=== PATIENT | male | born 1950 | race Caucasian/White ===

== ENCOUNTER 2018-09-03 08:17 | Outpatient (REF) | payer OTHER, SELFPAY ==
[2018-09-03 23:30] LABS: ALT 67 U/L (12-78); AST 30 U/L (15-37); Albumin 4.2 g/dL (3.4-5.0); Alkaline Phosphatase 102 U/L (46-116); Anion Gap 12.9 mmol/L (3-11); BUN 14 mg/dL (7-18); Bilirubin, Total 0.3 mg/dL (0.2-1.0); CO2 27.1 mmol/L (21.0-32.0); CREATININE 0.83 mg/dL (0.70-1.30); Calcium 9.4 mg/dL (8.5-10.1); Calculated LDL 122 mg/dL; Chloride 103 mmol/L (98-107); Cholesterol 197 mg/dL (50-200); Glucose 99 mg/dL (70-100); HDL Cholesterol 46 mg/dL (40-60); Potassium 4.3 mmol/L (3.5-5.1); Sodium 143 mmol/L (136-145); Total Protein 7.5 g/dL (6.4-8.2); Triglyceride 149 mg/dL (30-150)
== END 2018-09-03 08:37 ==
LOC: NCHCN 08:17
PROVIDERS: Visit Provider Nurse Practitioner Family
DX: I10 Essential (primary) hypertension (principal); R94.5 Abnormal results of liver function studies; Z13.6 Encounter for screening for cardiovascular disorders
CPT/HCPCS: 80053; 80061; 83721

== ENCOUNTER → 2023-04-10 14:40 | Outpatient (BNVA) | payer MEDICARE, SELFPAY | PROVIDERS: PCP Student in an Organized Health Care Education/Training Program; Referring Provider Student in an Organized Health Care Education/Training Program; Visit Provider Student in an Organized Health Care Education/Training Program | DX: M17.11 Unilateral primary osteoarthritis, right knee (principal) | CPT/HCPCS: 99203 ==

== ENCOUNTER 2023-05-12 02:42 | Outpatient (CLI) | payer MEDICARE, SELFPAY ==
[2023-05-12 12:20] LABS: HCT 45.1 % (40.0-50.0); MCH 29.2 pg (27.0-33.0); MCHC 33.3 % (32.0-36.0); MCV 88 fL (80-95); MPV 9.9 fL (8.0-11.0); Platelet Count 203 10^3/uL (130-400); RBC 5.14 10^6/uL (4.36-5.78); RDW 13.2 % (11.8-14.1); RDW-SD 42.5 fL; WBC 8.18 10^3/uL (4.4-10.8)
[2023-05-12 12:38] LABS: Anion Gap 9.7 mmol/L (3-11); BUN 12 mg/dL (7-18); CO2 28.3 mmol/L (21.0-32.0); Calcium 9.7 mg/dL (8.5-10.1); Chloride 104 mmol/L (98-107); Estimated GFR 79.47 (mL/min/1.73m2); Glucose 95 mg/dL (74-106); Potassium 4.6 mmol/L (3.5-5.1); Sodium 142 mmol/L (136-145)
== END 2023-05-12 02:43 | disposition home or self-care (01) ==
LOC: LBO 02:42
PROVIDERS: PCP Student in an Organized Health Care Education/Training Program; Visit Provider Student in an Organized Health Care Education/Training Program
DX: M17.11 Unilateral primary osteoarthritis, right knee (principal); Z01.818 Encounter for other preprocedural examination
CPT/HCPCS: 36415; 80048; 85027

== ENCOUNTER 2023-05-12 11:28 | Outpatient (CLI) | payer MEDICARE, SELFPAY ==
--- NOTE | 2023-05-12 11:20 | DI.RAD_ITS ---
Exam(s) XR KNEE RT 1V XR STANDING ALIGNMENT EXAM: XR STANDING ALIGNMENT CLINICAL HISTORY: PRE OP R TKA. TECHNIQUE: 2D digital imaging was performed. Standing AP views were performed from the pelvis throu gh the ankles. Lateral view of the right knee. COMPARISON: DOC,DX XR KNEE 4V RT from 07/06/2022 CR XR KNEE RT 1V from 05/12/2023 FINDINGS: BONES: No acute fracture is present. No bony destructive lesion is seen. Leg length discrepancy: Approximately 5 millimeters, left greater than right. Severe degenerative ch anges well as scoliosis in the lumbar spine. JOINTS: Knees: Degenerative changes of both knees, right greater than left. Prominent periarticular spurring from the medial femoral tibial joint and patellofemoral joint. Ankles: Joint spaces are maintained. Multiple rounded densities are noted on the right which could r epresent multiple loose bodies. Hips: Severe narrowing of the left hip joint space and periarticular spurring. The right hip joint s pace is maintained. SOFT TISSUE: Vascular calcifications. IMPRESSION: Severe degenerative changes of the medial femoral tibial joint of the right knee. Severe degenera tive changes are also noted in the left hip.. Mild leg length discrepancy. DATA REPOSITORY: RADIATION DOSE DELIVERED:
== END 2023-05-12 11:29 | disposition home or self-care (01) ==
LOC: DIORS 11:28
PROVIDERS: PCP Student in an Organized Health Care Education/Training Program; Referring Provider Student in an Organized Health Care Education/Training Program; Visit Provider Physician Assistant
DX: M17.11 Unilateral primary osteoarthritis, right knee (principal); Z01.818 Encounter for other preprocedural examination
CPT/HCPCS: 73560; 77073

== ENCOUNTER 2023-05-23 07:08 | Day surgery (SDC) | payer MEDICARE, SELFPAY ==
[2023-05-23] VITALS (8 sets, daily range): BP systolic 103–148; BP diastolic 50–72; PULSE 49–61; RESP 14–18; TEMP 36.5–36.7; O2SAT 92–99; BMI 34.5
--- NOTE | 2023-05-23 06:29 | W.ANESPRE ---
General Info Date of Service Date Performed: 05/23/23 Height: 5 ft 9 in Weight: 106.141 kg Body Mass Index (BMI): 34.5 Surgical Procedure: Operation Date: 05/23/23 09:25 Proposed Procedure Side Surgeon p Knee Total Arthroplasty Right Shlomo Rosas MD Meds Allergies and Home Medications Allergies Allergy/AdvReac Type Severity Reaction Status Date / Time No Known Allergies Allergy Verified 05/23/23 07:24 Home Medication Medication Instructions Recorded atorvastatin 20 mg tablet 20 mg PO DAILY 04/10/23 lisinopril 20 1 tab PO DAILY 04/10/23 mg-hydrochlorothiazide 25 mg tablet oxycodone 60 mg tablet,crush 60 mg PO BID 04/10/23 resistant,extended release 12 hr pramipexole 0.125 mg tablet 0.125 mg PO QHS 04/10/23 zolpidem 10 mg tablet 10 mg PO HS 04/10/23 acetaminophen 500 mg tablet 1,000 mg (2 x 500 mg) PO TID #90 05/23/23 tabs aspirin 81 mg tablet,delayed 81 mg PO BID #60 tabs 05/23/23 release celecoxib 200 mg capsule 200 mg PO BID #60 caps 05/23/23 dexamethasone 4 mg tablet 4 mg PO DAILY #2 tabs 05/23/23 gabapentin 300 mg capsule 300 mg PO QHS #14 caps 05/23/23 oxycodone 10 mg tablet 10 mg PO Q4H PRN #20 tabs 05/23/23 pantoprazole 40 mg tablet,delayed 40 mg PO DAILY #30 tabs 05/23/23 release Current Visit Medications: Current Medications Generic Name Dose Route Start Last Admin Trade Name Ross PRN Reason Stop Dose Admin Acetaminophen 1,000 mg 05/23/23 06:00 Acetaminophen 500 Mg Tab PO 05/23/23 23:59 PREOP SHERLY Celecoxib 200 mg 05/23/23 06:00 Celecoxib 200 Mg Cap PO 05/23/23 23:59 PREOP SHERLY Gabapentin 600 mg 05/23/23 06:00 Gabapentin 300 Mg Cap PO 05/23/23 23:59 PREOP SHERLY Ringer's Solution 1,000 mls @ 80 mls/hr 05/23/23 06:00 IV 05/23/23 23:59 INFUSION SHERLY Cefazolin Sodium/Dextrose 2 gm in 50 mls @ 100 mls/hr 05/23/23 06:00 Ancef Duplex IVPB 05/23/23 23:59 PREOP SHERLY Tranexamic Acid/Sodium Chloride 100 mls @ 600 mls/hr 05/23/23 06:00 IVPB 05/23/23 23:59 PREOP SHERLY IV Miscellaneous Supplies 1 each 05/23/23 06:00 Iv Access IV 05/23/23 23:59 DIRECTED SHERLY Sodium Chloride 0 ml 05/23/23 06:00 Normal Saline Flush 10 Ml Syr IV 05/23/23 23:59 PRN PRN Sodium Chloride 0 ml 05/23/23 06:00 Normal Saline 10 Ml Vial IJ 05/23/23 23:59 DIRECTED PRN Sterile Water 0 ml 05/23/23 06:00 Water,Injection,Sterile 10 Ml Vial IJ 05/23/23 23:59 DIRECTED PRN PFSH Active Problems Active Problems: Problem Status Onset Code Arthritis of right knee M17.11 Prediabetes R73.03 Low back pain M54.50 Chronic pain syndrome G89.4 PTSD (post-traumatic stress disorder) F43.10 Erectile dysfunction N52.9 Obesity E66.9 Hyperlipidemia E78.5 Medical History Medical History (Updated 05/18/23 @ 10:35 by Mary Arredondo RN) Personal history of cardiovascular disease Tremor Elbow joint pain Shoulder joint pain Essential hypertension Psychophysiological insomnia Nicotine dependence Polyneuropathy Restless legs History of alcoholism Tobacco Smoking/Tobacco Use Status: Current every day Tobacco Type: cigarettes Alcohol Alcohol Intake: former Substance Use Substance use: Current Sobriety Vital Signs and Lab Results Lab Results Blood Type / Crossmatch: No Data to Display Complete Blood Count: White Blood Count 8.18 10^3/uL (4.4-10.8) 05/12/23 12:10 Red Blood Count 5.14 10^6/uL (4.36-5.78) 05/12/23 12:10 Hemoglobin 15.0 g/dL (13.5-17.5) 05/12/23 12:10 Hematocrit 45.1 % (40.0-50.0) 05/12/23 12:10 Platelet Count 203 10^3/uL (130-400) 05/12/23 12:10 Complete Metabolic Panel: Sodium 142 mmol/L (136-145) 05/12/23 12:10 Potassium 4.6 mmol/L (3.5-5.1) 05/12/23 12:10 Chloride 104 mmol/L (98-107) 05/12/23 12:10 Carbon Dioxide 28.3 mmol/L (21.0-32.0) 05/12/23 12:10 BUN 12 mg/dL (7-18) 05/12/23 12:10 Creatinine 1.0 mg/dL (0.70-1.30) 05/12/23 12:10 Est GFR (CKD-EPI 2020) 79.47 (mL/min/1.73m2) 05/12/23 12:10 Calcium 9.7 mg/dL (8.5-10.1) 05/12/23 12:10 Glucose 95 mg/dL (74-106) 05/12/23 12:10 Liver Function Panel: No Data to Display Coagulation Panel: No Data to Display Cardiac Panel: No Data to Display Arterial Blood Gas: No Data to Display Venous Blood Gas: No Data to Display Pancreas Panel: No Data to Display Thyroid Panel: No Data to Display Infectious Disease: No Data to Display Blood Cultures: No Data to Display Toxicology Panel: No Data to Display Anesthesia Assessment and Plan Anesthesia History Personal History: Unknown Anesthesia History Family History: No Family History of Anesthesia Complications Exercise Tolerance Exercise Tolerance: Metabolic Equivalents>4 Cardiac & Pulmonary Exam Cardiac Exam: Normal S1/S2 Heart Sounds Pulmonary Exam: Clear Bilateral Breath Sounds Implantable Cardiac Device Does patient have a Pacemaker or an ICD?: No Airway Exam Known Difficult Airway: No Mallampati Class: 4 Mouth Opening: Normal (> 3cm) Thyromental Distance: Greater than 3 cm Neck Range of Motion: Limited ROM Neck Circumference: Thick Teeth Condition: Normal Dentition and Removable Dentures/Plates Upper ASA Classification ASA Score: ASA 2 Emergency Case?: No NPO Status NPO Status: NPO Clears >2 hours, Solids >8 hours Anesthesia Plan Resuscitation Status: Full Code Anesthesia Technique: Spinal Anesthesia Airway Planned: Natural Airway Pain Management: Surgeon and patient request nerve block Monitors Used: Standard Monitors Preoperative Comments:: 72 yo male for TKA. Sig PMHx: HTN (lisinopril, HCTZ), preDM (A1c 6.0), RLS (pramipexole), PTSD, chronic pain (oxycodone 60 mg 2x/d), smoker, former EtOH. Has significant needle anxiety. Barely able to sit still for the IV. Discussed risks, benefits of spinal vs GA. Would like to attempt spinal, fully understands that we can stop the spinal at any point and convert to GA (or not proceed with the procedure at all). Discussed the nerve block can be done under GA/spinal given how nervous he is (he was unable to keep his legs still just for the IV placement). discussed increased risk of nerve injury while under GA/spinal, but given his inability to sit still, likely safer under ga/spinal. Plan: Attempt at spinal, with very low threshold for GA, and block performed after GA or spinal.
--- NOTE | 2023-05-23 07:18 | W.PM.DSUDISC ---
Date of service: 05/23/23 Time of Service: 07:18 Discharge Plan Disposition Patient Disposition: Home Condition: Good Discharge Details Reason For Visit: R TKR Attending Provider: Shlomo Rosas Primary Care Provider: Britney Velasquez Home Meds and New Rx's Prescriptions: New acetaminophen 500 mg tablet 1,000 mg PO TID Qty: 90 3RF aspirin 81 mg tablet,delayed release (DR/EC) 81 mg PO BID Qty: 60 0RF celecoxib 200 mg capsule 200 mg PO BID Qty: 60 0RF dexamethasone 4 mg tablet 4 mg PO DAILY Qty: 2 0RF gabapentin 300 mg capsule 300 mg PO QHS Qty: 14 0RF pantoprazole 40 mg tablet,delayed release (DR/EC) 40 mg PO DAILY Qty: 30 0RF oxycodone 10 mg tablet 10 mg PO Q4H PRNQty: 20 0RF Continued atorvastatin 20 mg tablet 20 mg PO DAILY lisinopril-hydrochlorothiazide 20-25 mg tablet 1 tab PO DAILY oxycodone 60 mg tablet,oral only,ext.rel.12 hr 60 mg PO BID pramipexole 0.125 mg tablet 0.125 mg PO QHS zolpidem 10 mg tablet 10 mg PO HS Discharge Instructions Additional Instructions: Total Knee Discharge Instructions Activity: The most important activity is to walk and to work on gentle motion (both flexion and extension). You should try to take short walks a few times a day. It is important that when resting you work on keeping the knee straight. Avoid putting a pillow behind the knee as this will encourage flexion. Work on range of motion exercises as provided by Physical Therapy. - Start outpatient physical therapy within 2 weeks. - You should wear the LOUISA hose on both legs for 2 weeks. You may remove these at night. You may also use any compression sock in place of the LOUISA hose. - Utilize [employer] to review exercises, see videos on exercises and obtain basic information pertaining to your surgery and your recovery. Dressing: Remove the Kvein wrap by 2 days after your surgery and put on the LOUISA stocking given to you from the hospital. Keep the surgical dressing (underneath the KEVIN wrap) in place for at least one week. After the first week it may be removed and replaced with light gauze and tape or nothing. The wound and dressing may get wet after 3 days but avoid soaking the dressing or otherwise it will need to be changed. Many people prefer covering the dressing with cling wrap (saran wrap) to minimize it from getting soaked. If it gets wet, just pat dry. If it starts to peel off then it will need to be changed. Medications: - You should take Tylenol and anti-inflammatory Celebrex as your primary pain control medications. If the Celebrex is too expensive or not covered, please call the office for another alternative (Advil/Ibuprofen or Naproxen/Aleve) - You have been prescribed a stronger pain medication Oxycodone for breakthrough pain, take as needed as prescribed. - You have also been prescribed a stomach acid reduction agent Pantoprozole to help reduce stomach acid and reflux. - You have been prescribed Gabapentin to take at night for restlessness and nerve pain. - You will be taking Aspirin 81mg twice a day for DVT prevention unless instructed otherwise. - You have also been prescribed Decadron to take to control post-operative nausea and pain. You will start this tomorrow. - If you have constipation you should take Colace or Miralax (both [id number]). It takes most people 3-4 days to have a bowel movement. Follow-up: 2 weeks If you have any acute concerns or questions, please do not hesitate to contact the office at [phone]. You may contact Dr. Rosas with any questions after hours through the hospital at [phone] or on his cell phone at [phone]. Referrals: Shlomo Rosas MD [ [facility] STAFF PHYSICIAN] - Equipment/Supplies: Walker Activity:: Activity as Tolerated Shower/Bathe:: 72 hours Diet:: As Tolerated DS: Diagnosis Discharge Diagnosis (1) Arthritis of right knee: Status: Acute
[2023-05-23] MEDS: Lactated Ringers 1,000 ML 80 ML IV (07:57)
[2023-05-23] MEDS: Celecoxib 200 MG CAP PO (08:02)
[2023-05-23] MEDS: Gabapentin 300 MG CAP 600 MG PO (08:02)
[2023-05-23] MEDS: Acetaminophen 500 MG TAB 1000 MG PO (08:03)
[2023-05-23] MEDS: ceFAZolin 2 GM/50 ML BAG IVPB (09:14)
--- NOTE | 2023-05-23 09:26 | W.ANESNERVE ---
Nerve Block Single Injection Procedure Date and Time Date Performed: 05/23/23 Procedure Start: 09:09 Location Where Procedure Performed Procedure Location: Operating Room Procedure Stop: :14 Reason Performed: Postoperative Analgesia Requesting Provider: Shlomo Rosas Timeout Performed Timeout Performed: Yes Monitoring Used ECG, Blood Pressure and SpO2 Sterility Sterility: Hand Hygiene, Surgical Cap, Surgical Mask, Sterile Gloves and Chlorhexidine Sedation Given During Procedure Sedation Given (Indicate Dose Given): No Sedation given Patient Mental Status Patient Mental Status: Performed under spinal anesthesia Nerve Block 1st Nerve Block: Laterality: Right Block Type: Adductor Canal Ultrasound Image Saved?: Yes Needle / Catheter Used: 100mm SonoPlex II Local Anesthetic Bolus (Indicate Dose Given): Bupivacaine 0.25% Dose:: 7 mL Additives (Indicate Dose Given): None Ultrasound: Sterile probe cover and gel used Nerve Stimulator: Not Used Paresthesia: None Procedure Tolerated: No Complications Procedure Outcome: Successful Performed By: Curry Quiroga
--- NOTE | 2023-05-23 10:32 | ROE_ITS ---
Date of service: 05/23/23 Time of Service: 09:20 Operative Note Operative Note DATE OF PROCEDURE: 05/23/23 PRE-OP DIAGNOSIS: Right Knee Osteoarthritis POST-OP DIAGNOSIS: same PROCEDURE: Right Total Knee Replacement SURGEON: Shlomo Rosas ORNAMENTAL METALWORK DESIGNER: Sally Pina ANESTHESIA TYPE: Spinal Refer to Anesthesia Record ESTIMATED BLOOD LOSS: 100 PATHOLOGY: none sent TOURNIQUET TIME: 0 COMPLICATIONS: None Patient was transported to: PACU Patient's condition: stable Implants: 1. Depuy Attune Cementless Cruciate Retaining Femoral Component, Size 7 2. Depuy Attune Cementless Fixed Bearing Tibial Component, Size 6 3. Depuy Attune 7x8 CR/FB Poly 4. Depuy Attune Patellar Component, Size 38 Indications: I have seen Travis in clinic for symptoms of knee arthritis, confirmed with radiographic findings. He has exhausted nonoperative methods and was having significant limitations in daily function and desired better function and less pain. I discussed the technical details of a knee replacement. I explained the risks of the procedure to include, but not limited to, bleeding, infection, pain, stiffness, fracture, damage to nerves and vessels, damage to muscles and tendons, loosening, need for repeat procedure, blood clot and cardiopulmonary de mise. Despite these risks, Travis elected to proceed. Findings: There was significant signs of arthritis throughout the knee with loose bodies and large osteophytes. Procedure Description: Travis was greeted in the preoperative holding area where the correct side was identified and marked. The consent was reviewed with the patient and signed. The history and physical was updated. All questions were answered. Preoperative medications were administered: Acetaminophen 1000mg, Celebrex 400mg, and Gabapentin 300mg. An adductor canal block was then administered by the anesthesia team in the PACU. Travis was taken back to the operating room. A spinal anesthestic was then administered. The patient was placed into the supine position on the operating room table. A nonsterile tourniquet was placed high onto the leg but only used for cementing. Posts were placed for positioning during the pr ocedure. All bony prominences were well padded. Prophylactic antibiotics in the form of Cefazolin were administered. 1g of Tranxemic Acid was given intravenously within 30 minutes of incision. The right leg was then prepped with Chloraprep and draped in a standard fashion with impervious stockinette. A second prep with Chloraprep was performed prior to application of Iodine impregnated skin protection. A timeout to confirm correct identity, side and site, procedure, allergies, anesthesia, and medical concerns was performed. With the knee in some flexion, a midline incision was made overlying the knee. Full thickness skin flaps were raised once the extensor mechanism was encountered. These were raised medially and laterally. Any bleeding was controlled with electrocautery. Once the extensor mechanism was fully exposed, a medial parapatellar arthrotomy was performed in a flexed position. All bleeding from the arthrotomy and the geniculate arteries was coagulated. A medial subperiosteal peel was performed with electrocautery to the midcoronal plane. Due to the significant varus deformity the entire medial tibial plateau was exposed. The fat pad was removed while keeping the patellar tendon protected. The anterior distal femur synovium was removed for later visualization. The ACL and PCL were resected and the anterior horn of the lateral meniscus was transected. The knee was then flexed with the patella everted. Large osteophytes from the tibia were removed. Large osteophytes from the femur were removed. Using a step drill, and based on preoperative templating, the femoral canal was entered. This was done with a step drill without any difficulty. The intramedullary distal femoral cut guide was inserted, set to a 5 degree valgus cut and 10mm cut thickness. The distal femoral cut guide was then held in position and pinned. With the soft tissues protected, the distal cut was performed. This was passed over a few times to ensure a planar cut. I then turned attention to the tibia. The extramedullary guide was placed onto the leg. The distal aspect was slid medial to adjust for position of center of ankle and stay in line with shaft of the tibia. Approximately 3-5 degrees of posterior slope was kept in the proximal cutting guide. The center of the guide was aligned with the PCL. The stylus was used to assess cut thickness. The medial side, most involved side, was set for a 4mm cut. This was then held in position and pinned into place with 2 additional pins and a cross pin for stability. The medial and lateral collateral ligaments were protected and the cut was performed. With this completed, it was assessed and noted to be of appropriate dimensions. The guide was removed. A spacer block was inserted and the knee was brought into extension. The 7mm spacer block provided full extension, without hyperextension and with stability of both the medial and lateral collateral ligaments was assessed. The pins from the femur and the tibia were then removed. The distal femur was then sized. The anterior stylus was placed onto the lateral ridge of the anterior femur. This indicated a size 7 femur. The external rotation of the guide was adjusted to 0 degrees to match the epicondylar axis, perpendicular to [place]?s line. The 4-in-1 cutting guide was the placed. The posterior medial femur cut was evaluated and appeared of good thickness. The spacer block was inserted underneath the cutting guide and stability was confirmed in 90 degrees of flexion. An seymour wing was used to confirm appropriate position of the anterior cut to avoid notching. This cutting guide was ensured to be flush on the cut surface and then pinned into place with headed pins. While protecting the soft tissues, quad tendon, and co llateral ligaments, the anterior and posterior cuts were performed with a saw. The central two pins were removed and the posterior and anterior chamfers were cut next. The notch-cutting guide was placed. This was pinned to lateralize the femoral component as much as possible while keeping it flush on the cut surface. This was then pinned into position. A reciprocating saw was used to make the notch cut. A rasp smoothed the cut surfaces. The medial and lateral menisci were removed. A trial femoral component was then inserted, impacted down to the cut surfaces, and the lug holes were drilled. A provisional trial tibial component was placed and the knee was brought through range of motion. The polyethylene was trialed until there was good flexion and extension with excellent stability to the medial and lateral collaterals. The patella was tracking without thumbs. A size 8mm polyethylene component provided the best range of motion and stability with less than 2mm gapping with medial and lateral stress and full extension without significant hyperextension. The tibial cut surface was fully exposed. The tibia was then sized as a 6. The tibia had been previously marked during trialing to correspond to the center of the tibial component to help with rotation. The trial was aligned to this jason, approximately rotated to the medial 1/3rd of the tibial tubercle. The trial was pinned into place. The tibia was prepared with a reamer and a keel punch and lug holes. The knee was then brought into extension and the patella was measured as 26mm. Using the patellar clamp and cut guide, this was resected to a flat surface with at least 13mm of thickness remaining. The size 38 patella fit the best. This was oriented and then clamped into position. The lugs were drilled. The trial components were removed. The final components were opened on the back table. The periosteal and capsular tissues, especially posteriorly, around the knee were then systematically injected with a periarticular cocktail consisting of 246mg of Ropivacaine, 0.5mg of Epinephrine, 0.08mg of Clonidine, and 30mg of Ketorolac, diluted to 100cc. On the back table, with the implants opened, the cement was mixed. One batch of high viscosity cement was prepared with vacuum assistance. After the cement was ready a small amount was placed on the cut surface of the patella and the patellar button was clamped into position and held. While the cement was hardening, the cementless knee components were placed. Starting with the tibial component, the tibia was subluxed anteriorly and the lug holes of the component were lined up. The tibia was then impacted with an impactor and mallet until the tibial component was in contact with the tibia. The final polyethylene component was inserted. Then, the femoral component was inserted. The lug holes were aligned and the component was impacted into position. The knee was irrigated with Surgiphor Betadine solution. This was allowed to sit in the knee for 3 minutes and then it was irrigated out with saline. After the cement had finally cured, approximately 15min, the clamp was removed from the patella and the knee was taken through range of motion. The patella was tracking with a no-thumbs technique. The capsule was then reapproximated with a No. 1 Vicryl at multiple locations. The capsule was finally closed with a No. 2 Stratafix, barbed suture. The second dosing of 1g TXA was started. Deep tissues were then reapproximated with 0 Vicryl and 2-0 Vicryl. The skin was closed with a running 3-0 Monocryl in a s ubcuticular fashion. This was reinforced with skin glue. A Mepilex silver dressing was applied along with a [id number]-wejvy MATILDE wrap. A CryoCuff was applied. Travis was transferred to the hospital bed without difficulty an suffering no apparent complication. Travis has a good prognosis although somewhat guarded with concerns about pain control given his chronic opiate use. Physical therapy will start today and without restrictions, weight-bearing as tolerated. Aspirin 81mg BID will be used for DVT prophylaxis.
--- NOTE | 2023-05-23 11:25 | W.ANESPOSTOP ---
Postoperative Evaluation Date, Time and Location Date Performed: 05/23/23 Time Performed: 11:25 Patient Location: PACU Vital Signs Most Recent Imported Vital Signs: Most Recent Vital Signs Temp Pulse Resp BP Pulse Ox 36.6 C 54 L 18 125/60 93 05/23/23 11:21 05/23/23 11:21 05/23/23 11:21 05/23/23 11:21 05/23/23 11:21 Pain Score Most Recent Pain Score: Most Recent Pain Score Pain Level 0 05/23/23 11:21 Assessment Mental Status: Awake (Alert & Oriented to Patient Baseline) Airway and Respiratory Function: Patent airway with normal (patient baseline) respiratory exam Cardiovascular Function: Hemodynamically Stable Hydration Status: Adequately Hydrated Nausea & Vomiting: No Nausea or Vomiting Pain: Pt. Denies Any Pain (spinal still in some effect. ) Peripheral Nerve Block: Patient did not receive a nerve block
--- NOTE | 2023-05-23 13:30 | PT.INIE ---
PT Notes Visit Reasons: R TKR Physical Therapy Day Surgery Initial Evaluation Date: 05/23/2023 Referring Doctor: YASMANY Atkinson PT Orders: PT CONSULT: S/p Ortho Surgery Precautions: WBAT on the R LE with AD. Patient Profile/Admitting Diagnosis: Travis is a 72-year-old male with degenerative joint disease of the right knee and is status post right total knee arthroplasty on postoperative day 0. PMHX: Medical History Polyneuropathy Restless legs History of alcoholism Social History/Home Situation: Lives with in a private home With 2 steps to enter with a rail on one side. He has a flight of steps to the second floor where the bedroom is. Equipment Owned/DME: [facility] Subjective: Complained of pain and the right knee and 2-3/10. Denied headache, chest pain, and lightheadedness throughout session. Objective: General Observation: MATILDE wraps to R LE. Cryocuff to R knee. TEDS to L leg/foot. Mental Status: A and O x 4 Pain: above ROM: Right Lower Extremity: Hip flexion WFL. Hip abduction WFL. Knee flexion 10 degrees to 100 degrees. Knee extension -10 degrees. Ankle dorsiflexion WFL. Ankle plantarflexion WFL. Left Lower Extremity: Hip flexion WFL. Hip abduction WFL. Knee flexion WFL. Ankle dorsiflexion WFL. Ankle plantarflexion WFL. Strength: Right Lower Extremity: Hip flexors 5/5. Hip abductors 5/5. Knee flexors 3-/5. Knee extensors 3-/5. Ankle dorsiflexors 5/5. Ankle plantarflexors 5/5. Left Lower Extremity:Hip flexors 5/5. Hip abductors 5/5. Knee flexors 5/5. Knee extensors 5/5. Ankle dorsiflexors 5/5. Ankle plantarflexors 5/5. Sensation: Intact as to pain and light pressure in B LE Bed Mobility/Transfers: Minimal cueing provided for use of B hands as needed for support, movement sequence, AD management, and posture to reduce fall risk and minimize pain report Supine to sit standby assist Sit to stand contact-guard assist Stand to sit standby assist Bed to chair standby assist Gait: Facilitated safe and correct performance of level surface ambulation covering a distance of 150 feet using front wheeled walker with step through reciprocal heel-toe gait pattern using front wheeled walker with minimal verbal cueing provided for correct gait pattern, hand placement, AD management, and posture to reduce fall risk and minimize pain report. Stairs: Guided patient with safe and correct negotiation of 3 x 4 inch steps and 2 x 6 inch steps while holding onto bilateral rails with step to gait pattern with minimal verbal cueing provided for correct movement sequence, hand placement, and increased knee flexion on the right during each ascent to reduce fall risk and minimize pain report. Balance: Static Sitting: Normal Dynamic Sitting: Normal Static Standing: Fair Dynamic Standing: fair Special Tests: Mobility Limitations Standardized Measure [facility] 6 clicks Basic Mobility Inpatient Short Form: Raw Score: 22 CMS Score: 21 % deficit Informed Consent/Education: Patient instructed in purpose of PT consult. Packet containing TKA exercise protocol has been given to patient. Education and training on initial set of exercises that can be done at home have been completed with patient. Trained patient with correct performance of exercises below to maximize motor control, joint flexibility, soft tissue extensibility of the R knee musculature: Access Code: [email or web address] URL: [email or web address] Date: 05/23/2023 Prepared by: Kristine Gipson Exercises - Supine Quad Set - 1 x daily - 7 x weekly - 1 sets - 10 reps - 5 hold - Supine Heel Slide - 1 x daily - 7 x weekly - 1 sets - 10 reps - 5 hold - Supine Ankle Pumps - 1 x daily - 7 x weekly - 1 sets - 10 reps - 5 hold - Small Range Straight Leg Raise - 1 x daily - 7 x weekly - 1 sets - 10 reps - 5 hold - Seated March - 1 x daily - 7 x weekly - 1 sets - 10 reps - 5 hold Assessment: Patient requires the use of a front wheeled walker for mobility ADL performance maximize independence and reduce fall risk. Patient presents with clinical signs and symptoms consistent with current/admitting diagnoses that have resulted to mobility limitations, gait instability, generalized weakness, and impairment of motor control as demonstrated by the following impairment level findings: 1. Decreased strength to Rknee major muscle groups 2. Impaired standing balance 3. Limitation of joint range of motion in R knee Impairments are contributing to the following functional limitations: 1. Inability to safely ambulate without assistive device 2. Increase completion time for mobility ADL performance 3. Increased fall risk Patient is assessed as a 59752 moderate complexity based on the following: History: 72-year-old male with impairment level findings, functional limitations, and past medical history as indicated above Examination: Demonstrable impairment in strength, balance, and mobility level with underlying impairments and functional limitations as documented above Presentation: Evolving Decision Makin moderate complexity Goals: N/A. PT evaluation and 1-2 treatment sessions only for functional mobility training using recommended AD and for HEP instruction. Plan of Care/Treatment Plan: N/A. PT evaluation and 1-2 treatment session only for functional mobility training using recommended AD and for HEP instruction. DISCHARGE RECOMMENDATIONS: Home when medically cleared by orthopedic surgeon. Recommend outpatient PT services in order to optimize functional mobility outcomes and facilitate return to independent community ambulation without an assistive device. TREATMENT CODE/TIME: 9716 2 x 24 minutes for 1 unit (13:30-13:54). Thank you for the opportunity to participate in the care of this patient. Please sign an return this page within 30 days if you agree with the above POC. Thank you! Physician Signature Date [facility] Thank you for the opportunity to participate in the care of this patient. Kristine Gipson PT, DPT, CLT [facility] [place], [place]
[2023-05-23] MEDS: Tranexamic Acid 650 MG TAB 1300 MG PO (13:56)
== END 2023-05-23 14:32 | disposition home or self-care (01) ==
PROVIDERS: PCP Student in an Organized Health Care Education/Training Program; Visit Provider Student in an Organized Health Care Education/Training Program
PROC: (CPT 27447; principal; 2023-05-23 09:15)
DX: M17.11 Unilateral primary osteoarthritis, right knee (principal); R73.03 Prediabetes; E66.9 Obesity, unspecified; E78.5 Hyperlipidemia, unspecified; G89.4 Chronic pain syndrome; Z68.34 Body mass index [BMI] 34.0-34.9, adult
CPT/HCPCS: 27447; C1776; 76942; 97162; J0665; J0690; J1100; J2250; J2401; J2405; J2704

== ENCOUNTER 2023-06-08 14:26 | Outpatient (CLI) | payer MEDICARE, SELFPAY ==
--- NOTE | 2023-06-08 09:30 | DI.RAD_ITS ---
Exam(s) XR STANDING ALIGNMENT XR KNEE RT 1V EXAM: XR STANDING ALIGNMENT and XR knee RT 1 V CLINICAL HISTORY: 1ST POST OP R TKA. TECHNIQUE: 2D digital imaging was performed. Six images were obtained. COMPARISON: CR XR STANDING ALIGNMENT from 05/12/2023 CR XR KNEE RT 1V from 05/12/2023 FINDINGS: BONES: There are marked degenerative changes seen in the left hip. There is loss of the superior bright nt space noted in the left hip. Moderately severe degenerative changes are seen in the left knee wit h loss of the medial joint compartment. The patient has a right total knee replacement. The orthope dic hardware appears in good position. No suspicious lucencies are seen in or about the orthopedic h ardware. There is soft tissue swelling around the knee consistent with the patient's recent surgery. Enthesophytes are seen in the anterior patella. The ankles are well maintained.The left lower extr emity is 1 cm longer than the right lower extremity. SOFT TISSUE: Vascular calcifications are present. IMPRESSION: 1. Right total knee replacement. 2. Moderate to severe degenerative changes in the left knee. DATA REPOSITORY: RADIATION DOSE DELIVERED:
== END 2023-06-08 14:27 | disposition home or self-care (01) ==
LOC: DIORS 14:26
PROVIDERS: PCP Student in an Organized Health Care Education/Training Program; Visit Provider Physician Assistant
DX: Z96.651 Presence of right artificial knee joint (principal); Z47.1 Aftercare following joint replacement surgery
CPT/HCPCS: 73560; 77073

== ENCOUNTER → 2023-07-13 09:40 | Outpatient (BNVA) | payer MEDICARE, SELFPAY | PROVIDERS: PCP Student in an Organized Health Care Education/Training Program; Referring Provider Student in an Organized Health Care Education/Training Program; Visit Provider Student in an Organized Health Care Education/Training Program | DX: Z47.1 Aftercare following joint replacement surgery (principal); Z96.651 Presence of right artificial knee joint ==

== ENCOUNTER 2023-12-18 15:40 | Outpatient (CLI) | payer MEDICARE, SELFPAY ==
--- NOTE | 2023-12-18 10:45 | DI.RAD_ITS ---
Exam(s) XR ANKLE RT COMPLETE EXAM: XR ANKLE RT COMPLETE CLINICAL HISTORY: right ankle pain. TECHNIQUE: 2D digital imaging was performed. COMPARISON: CR XR STANDING ALIGNMENT from 06/08/2023 FINDINGS: 3 views No evidence of acute fracture. There are multiple similar calcifications in the anterior aspect of t he tibiotalar joint, consistent with probable synovial chondromatosis at this level. Similar finding s are not seen in the posterior aspect of the tibiotalar joint nor within the subtalar joint nor with in the talonavicular joint. Two small calcifications are seen more posteriorly in the tibiotalar joint. Prominent inferior calcaneal spurs noted. IMPRESSION: Multiple abnormal calcifications are noted in the anterior aspect and anterior to the tibiotalar join t. 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 DATA REPOSITORY: RADIATION DOSE DELIVERED:
== END 2023-12-18 15:41 | disposition home or self-care (01) ==
LOC: DIORS 15:40
PROVIDERS: PCP Student in an Organized Health Care Education/Training Program; Referring Provider Student in an Organized Health Care Education/Training Program; Visit Provider Student in an Organized Health Care Education/Training Program
DX: M25.571 Pain in right ankle and joints of right foot (principal); D48.0 Neoplasm of uncertain behavior of bone and articular cartilage; Z96.651 Presence of right artificial knee joint
CPT/HCPCS: 20605; J1010; 73610